=== PATIENT | male | born 1960 | race Native Hawaiian/Other Pacific Islander ===

== ENCOUNTER 2017-01-08 18:37 | Emergency (ER) | payer OTHER ==
[~2017-01-08] VITALS: Ht 165.1 cm; Wt 57.7 kg
[2017-01-08 18:50] VITALS: BP 101/61
--- NOTE | 2017-01-08 20:00 | NUR ---
Patient to bed 07.
--- NOTE | 2017-01-08 20:00 | NUR ---
PATIENT PRESENTS TO ED WITH C/O LEFT EAR ACHE AND BODY ACHES PT DENIES N/V/D; SKIN IS PINK/WARM/DRY; AAOX4 WITH EVEN AND STEADY GAIT; LUNGS CLEAR BL; HR EVEN AND REGULAR; PT DENIES ANY FEVER, CP, SOB, OR COUGH AT THIS TIME; PATIENT STATES PAIN OF 9/10 AT THIS TIME; VSS; PATIENT POSITIONED FOR COMFORT; HOB ELEVATED; BEDRAILS UP X2; BED DOWN. ER MD MADE AWARE OF PT STATUS.
--- NOTE | 2017-01-08 20:13 | NUR ---
Dr. Rosales evaluating patient at bedside.
[2017-01-08] MEDS ORDERED: KETOROLAC 60 MG/2 ML VIAL IM ONE (20:20)
[2017-01-08] MEDS ORDERED: AMOXICILLIN 500 MG CAP PO ONE (20:20)
[2017-01-08 20:45] VITALS: BP 101/61
--- NOTE | 2017-01-08 20:45 | NUR ---
Patient discharged with v/s stable. Written and verbal after care instructions given and explained. Patient alert, oriented and verbalized understanding of instructions. Ambulatory with steady gait. All questions addressed prior to discharge. ID band removed. Patient advised to follow up with PMD. Rx of MOTRIN AND AMOXICILLIN given. Patient educated on indication of medication including possible reaction and side effects. Opportunity to ask questions provided and answered.
== END 2017-01-08 20:45 | disposition home or self-care (01) ==
LOC: MED 18:37
DX: H66.92 Otitis media, unspecified, left ear (principal); M79.1 Myalgia; R51 Headache
CPT/HCPCS: 96372; 99283; J1885

== ENCOUNTER 2022-10-03 11:34 | Emergency (ER) | payer OTHER ==
[~2022-10-03] VITALS: Ht 165.1 cm; Wt 60.3 kg
[2022-10-03 11:42] VITALS: BP 127/77
[2022-10-03] MEDS ORDERED: KETOROLAC 30 MG/ML VIAL IM ONE (12:50)
[2022-10-03] MEDS ORDERED: DICL100G5 TP (14:20)
[2022-10-03] MEDS ORDERED: NAPR-1704 PO (14:20)
[2022-10-03] MEDS ORDERED: CAPS1ADH5 TP (14:20)
[2022-10-03 14:24] VITALS: BP 127/77
--- NOTE | 2022-10-03 14:24 | NUR ---
Patient discharged with v/s stable. Written and verbal after care instructions given and explained. Patient alert, oriented and verbalized understanding of instructions. Ambulatory with steady gait. All questions addressed prior to discharge. ID band removed. Patient advised to follow up with PMD. Rx of SALONPAS, NAPROXEN, DICLOFENAC (SENT) given. Patient educated on indication of medication including possible reaction and side effects. Opportunity to ask questions provided and answered.
== END 2022-10-03 14:24 | disposition home or self-care (01) ==
LOC: MED 11:34
DX: S16.1XXA Strain of muscle, fascia and tendon at neck level, initial encounter (principal); M25.531 Pain in right wrist; M25.532 Pain in left wrist; X58.XXXA Exposure to other specified factors, initial encounter; Y93.89 Activity, other specified; Y92.89 Other specified places as the place of occurrence of the external cause; Y99.8 Other external cause status
CPT/HCPCS: 72050; 96372; 99283; J1885

== ENCOUNTER 2024-02-10 02:35 | Emergency (ER) | payer OTHER ==
[~2024-02-10] VITALS: Ht 167.6 cm; Wt 59.0 kg
[~2024-02-10 02:35] MED LIST: CAPS1ADH5 TP; DICL100G32 TP; NAPR-1704 PO
[2024-02-10 02:47] VITALS: BP 138/90; PULSE 76; RESP 16; TEMP 97.5; O2SAT 98
[2024-02-10] MEDS: KETOROLAC 30 MG/ML VIAL IM ONE (03:56)
[2024-02-10] MEDS ORDERED: NAPR-337 PO (04:28)
[2024-02-10 04:39] VITALS: BP 138/90; PULSE 76; RESP 16; TEMP 97.5; O2SAT 98
== END 2024-02-10 04:41 | disposition home or self-care (01) ==
LOC: MED 02:35
DX: S76.011A Strain of muscle, fascia and tendon of right hip, initial encounter (principal); I10 Essential (primary) hypertension; Z86.39 Personal history of other endocrine, nutritional and metabolic disease; Z79.899 Other long term (current) drug therapy; X58.XXXA Exposure to other specified factors, initial encounter; Y92.89 Other specified places as the place of occurrence of the external cause; Y93.89 Activity, other specified; Y99.8 Other external cause status
CPT/HCPCS: 73502; 96372; 99283; J1885; Q0092